=== PATIENT | male | born 1970 | race Caucasian/White ===

== ENCOUNTER 2017-07-28 15:38 | Emergency (ER) | payer MEDICAID ==
[~2017-07-28] VITALS: Ht 154.9 cm; Wt 64.0 kg
[~2017-07-28 15:38] MED LIST: IOHEXOL-300 100 ML BOTTLE ONE; SODIUM CHLORIDE 0.9% 10ML VIAL ONE
[2017-07-28] MEDS ORDERED: SODIUM CHLORIDE 0.9% 1,000 ML IV ONE (20:17)
[2017-07-28] MEDS ORDERED: ONDANSETRON HCL 4MG/2ML VIAL IV STA (20:17)
[2017-07-28] MEDS ORDERED: MORPHINE SULFATE 4 MG/ML CPJ (NOT FOR IM USE) IV STA (20:17)
[2017-07-28 20:36] LABS: CLARITY URINE CLEAR (CLEAR); COLOR URINE YELLOW (YELLOW); GLUCOSE URINE NEGATIVE (NEGATIVE); KETONES URINE NEGATIVE (NEGATIVE); LEUKOCYTE ESTERASE URINE NEGATIVE (NEGATIVE); NITRITE URINE NEGATIVE (NEGATIVE); OCCULT BLOOD URINE NEGATIVE (NEGATIVE); PH URINE 6.5 (4.5-8.0); PROTEIN URINE NEGATIVE (NEGATIVE); SPECIFIC GRAVITY URINE 1.019 (1.005-1.030); UROBILINOGEN URINE 0.2 E.U./dL (0.2-1.0)
[2017-07-28 20:38] LABS: BASOPHILS % 1.1 % (0.0-2.0); EOSINOPHILS % 9.1 % (0.0-5.0); HEMATOCRIT. 46.2 % (42.0-52.0); HEMOGLOBIN. 16.1 g/dL (14.0-18.0); LYMPHOCYTES % 41.4 % (20.0-50.0); MEAN CORPUSCULAR HEMOGLOBIN 29.6 pg (28.0-32.0); MEAN CORPUSCULAR VOLUME 85.1 fL (80.0-94.0); MEAN PLATELET VOLUME 10.6 fl (7.4-10.4); MONOCYTES % 6.3 % (2.0-8.0); NEUTROPHILS % 42.1 % (40.0-76.0); PLATELET 201 x1000/uL (130-400); RED BLOOD CELL COUNT 5.43 mill/uL (4.7-6.1); RED CELL DISTRIBUTION WIDTH 12.7 % (11.6-14.6)
[2017-07-28 20:43] LABS: CHLORIDE 105 mEq/L (98-107); PROTHROMBIN TIME 10.6 sec (9.4-11.6)
[2017-07-28 20:49] LABS: CARBON DIOXIDE 30 mEq/L (21-32)
[2017-07-28 22:39] VITALS: BP 129/75
== END 2017-07-29 00:38 | disposition home or self-care (01) ==
LOC: ER 19:23
DX: K57.32 Diverticulitis of large intestine without perforation or abscess without bleeding (principal); N28.1 Cyst of kidney, acquired
CPT/HCPCS: 36415; 74177; 80053; 81003; 83690; 85025; 85610; 96374; 96375; 99285; A4216; J2270; J2405; J7030; Q9967; Z7610

== ENCOUNTER 2023-08-09 17:42 | Emergency (ER) | payer MEDICAID, OTHER ==
[~2023-08-09] VITALS: Ht 172.7 cm; Wt 68.0 kg
[2023-08-09 17:52] VITALS: O2SAT 99
[2023-08-09 20:06] LABS: BASOPHILS % 1.3 % (0.0-2.0); EOSINOPHILS % 14.2 % (0.0-5.0); HEMATOCRIT. 47.1 % (42.0-52.0); HEMOGLOBIN. 15.8 g/dL (14.0-18.0); LYMPHOCYTES % 36.2 % (20.0-50.0); MEAN CORPUSCULAR HEMOGLOBIN 29.3 pg (28.0-32.0); MEAN CORPUSCULAR HGB CONC 33.7 g/dL (31.0-37.0); MEAN CORPUSCULAR VOLUME 87.1 fL (80.0-94.0); MEAN PLATELET VOLUME 10.7 fl (7.4-10.4); MONOCYTES % 6.8 % (2.0-8.0); NEUTROPHILS % 41.5 % (40.0-76.0); PLATELET 203 x1000/uL (130-400); RED CELL DISTRIBUTION WIDTH 12.8 % (11.6-14.6); WHITE BLOOD COUNT 8.2 x1000/uL (4.5-11.0)
[2023-08-09 20:19] LABS: CHLORIDE 107 mEq/L (98-107); INDEX HEMOLYSI 1 (1-3); INDEX ICTERIC 1 (1-4); INDEX LIPEMIC 1 (1-3); POTASSIUM 3.8 mEq/L (3.5-5.1); SODIUM 136 mEq/L (136-145)
[2023-08-09 20:29] LABS: ALANINE AMINOTRANSFERASE 40 IU/L (13-61); ALBUMIN 4.1 g/dL (3.4-5.0); ASPARTATE AMINOTRANSFERASE 25 IU/L (15-37); BILIRUBIN TOTAL 0.6 mg/dL (0.1-1.0); CALCIUM 9.1 mg/dL (8.5-10.1); CARBON DIOXIDE 27 mEq/L (21-32); CREATINE KINASE 144 IU/L (39-308); CREATININE 0.7 mg/dL (0.6-1.3); GLUCOSE 96 mg/dL (70-105); PROTEIN TOTAL 8.1 g/dL (6.0-8.3); TROPONIN I HIGH SENSITIVITY 77 ng/L (<78); UREA NITROGEN BLOOD 12 mg/dL (7-21)
[2023-08-09] MEDS ORDERED: ASPIRIN 81MG TABLET PO ONE (21:30)
[2023-08-09 22:26] VITALS: TEMP 97.7
[2023-08-09 23:34] LABS: TROPONIN I HIGH SENSITIVITY 76 ng/L (<78)
[2023-08-10 00:30] VITALS: BP 120/75; PULSE 54; RESP 17
== END 2023-08-10 01:08 | disposition short-term general hospital (02) ==
LOC: ER 17:42
DX: R07.89 Other chest pain (principal)
CPT/HCPCS: 80053; 82550; 85025; 84484; 36415; 71045; 93005; 99285; Z7610 ×3

== ENCOUNTER 2023-10-25 16:00 | Emergency (ER) | payer OTHER ==
[~2023-10-25] VITALS: Ht 165.1 cm; Wt 68.0 kg
[2023-10-25 16:10] VITALS: O2SAT 98
[2023-10-25] MEDS ORDERED: TETANUS, DIPHTHERIA, PERTUSSIS VAC/PF 0.5ML (>10YR OLD) IM ONE (17:45)
[2023-10-25] MEDS ORDERED: IBUPROFEN 600MG TABLET PO ONE (19:00)
[2023-10-25 19:31] VITALS: BP 139/84; PULSE 68; RESP 14; TEMP 98.4
== END 2023-10-25 19:32 | disposition home or self-care (01) ==
LOC: ER 16:00
DX: M19.072 Primary osteoarthritis, left ankle and foot (principal)
CPT/HCPCS: 73610; 90471; 90715; 99283

== ENCOUNTER 2024-08-18 18:18 | Emergency (ER) | payer OTHER ==
[~2024-08-18] VITALS: Ht 154.9 cm; Wt 72.6 kg
[2024-08-18 18:36] VITALS: BP 134/88; PULSE 64; RESP 16; TEMP 98.6; O2SAT 98
== END 2024-08-18 22:17 | disposition home or self-care (01) ==
LOC: ER 18:18
DX: M79.672 Pain in left foot (principal)
CPT/HCPCS: 73630; 99283